=== PATIENT | female | born 2000 | race Caucasian/White ===

== ENCOUNTER 2022-09-13 22:36 | Emergency (ER) | payer OTHER ==
[~2022-09-13] VITALS: Ht 160 cm; Wt 74.4 kg
[2022-09-13 22:46] VITALS: BP_SYST 119; PULSE 102; RESP 18; TEMP 98; O2SAT 98
[2022-09-13] MEDS ORDERED: ceFAZolin SODIUM 2 GM VIAL IM ONE (23:30)
[2022-09-13] MEDS ORDERED: ceFAZolin SODIUM 1 GM VIAL ONE (23:35)
[2022-09-13] MEDS ORDERED: CEPH-548 PO (23:57)
[2022-09-13 23:59] VITALS: BP_SYST 117; PULSE 99; RESP 18; TEMP 98; O2SAT 98
== END 2022-09-13 23:59 | disposition home or self-care (01) ==
LOC: SED 22:36
DX: L03.115 Cellulitis of right lower limb (principal); R22.41 Localized swelling, mass and lump, right lower limb; Z79.899 Other long term (current) drug therapy
CPT/HCPCS: 99283; 96372; J0690

== ENCOUNTER 2022-09-16 14:33 | Emergency (ER) | payer OTHER ==
[~2022-09-16] VITALS: Ht 160 cm; Wt 74.4 kg
[~2022-09-16 14:33] MED LIST: CEPH-548 PO
[2022-09-16 14:52] VITALS: BP_SYST 125; PULSE 91; RESP 18; TEMP 98.3; O2SAT 98
[2022-09-16] MEDS ORDERED: NEOM28.37 TP (15:02)
[2022-09-16] MEDS ORDERED: IBUP-1969 PO (15:02)
[2022-09-16] MEDS ORDERED: TRAM50TA2 PO (15:02)
[2022-09-16 16:01] VITALS: BP_SYST 125; PULSE 91; RESP 18; TEMP 98.3; O2SAT 98
== END 2022-09-16 15:44 | disposition home or self-care (01) ==
LOC: SED 14:33
DX: L55.0 Sunburn of first degree (principal); M25.511 Pain in right shoulder; M25.512 Pain in left shoulder; Z79.899 Other long term (current) drug therapy
CPT/HCPCS: 99283

== ENCOUNTER 2022-10-24 17:41 | Emergency (ER) | payer OTHER ==
[~2022-10-24] VITALS: Ht 165.1 cm; Wt 64.4 kg
[~2022-10-24 17:41] MED LIST changes: +IBUP-1969 PO; +NEOM28.37 TP; +TRAM50TA2 PO
[2022-10-24 18:04] VITALS: BP_SYST 113; PULSE 95; RESP 18; TEMP 98; O2SAT 97
[2022-10-24] MEDS ORDERED: METOCLOPRAMIDE HCL 10 MG/2 ML VIAL IM ONE (18:30)
[2022-10-24 18:49] LABS: BILIRUBIN,URINE NEGATIVE (NEGATIVE); BLOOD, URINE NEGATIVE (NEGATIVE); COLOR,URINE YELLOW (YELLOW); GLUCOSE,URINE NEGATIVE (NEGATIVE); KETONES,URINE NEGATIVE (NEGATIVE); LEUKOCYTE ESTERASE ,URINE TRACE (NEGATIVE); NITRITE, URINE NEGATIVE (NEGATIVE); PH,URINE 6.5 (5.0-8.0); PROTEIN URINE TRACE (NEGATIVE)
[2022-10-24 18:52] LABS: BASOPHILS % (AUTO) 0.5 % (0.0-2.0); EOSINOPHILS # (AUTO) 0.1 K/uL (0.0-0.4); EOSINOPHILS % (AUTO) 1.2 % (0.0-4.0); HEMATOCRIT 38.5 % (36-48); HEMOGLOBIN 13.2 g/dL (12.0-16.0); LYMPHOCYTES # (AUTO) 1.2 K/uL (1.0-5.5); LYMPHOCYTES % (AUTO) 19.5 % (20.5-51.5); MEAN CORPUSCULAR HEMOGLOBIN 30 pg (27-31); MEAN CORPUSCULAR HGB CONC 34 % (32-36); MEAN CORPUSCULAR VOLUME 87 fL (79.0-98.0); MONOCYTES # (AUTO) 0.5 K/uL (0.0-1.0); MONOCYTES % (AUTO) 8.2 % (1.7-9.3); NEUTROPHILS # (AUTO) 4.3 K/uL (1.8-7.7); NEUTROPHILS % (AUTO) 70.6 % (40.0-70.0); PLATELET COUNT (AUTO) 269 K/uL (130-430); RED BLOOD CELL COUNT(AUTO) 4.44 MIL/uL (4.2-6.2); RED CELL DISTRIBUTION WIDTH 12.4 % (9.0-15.0); WHITE BLOOD COUNT (AUTO) 6.1 K/uL (4.5-11.0)
[2022-10-24 18:53] LABS: CLARITY/URINE SLIGHTLY HAZY (CLEAR)
[2022-10-24 19:04] LABS: ACETONE, SERUM NEGATIVE (NEGATIVE)
[2022-10-24 19:05] LABS: ANION GAP 7 (5-15); CALCIUM 8.9 mg/dL (8.4-11.0); CARBON DIOXIDE 28 mmol/L (23-29); CHLORIDE 103 mmol/L (98-107); CREATININE 0.73 mg/dL (0.55-1.30); GFR AFRICAN AMERICAN 132 mL/min (>90); GLUCOSE 113 mg/dL (74-106); POTASSIUM 3.9 mmol/L (3.5-5.1); SERUM HCG (QUALITATIVE) NEGATIVE (NEGATIVE); SODIUM SERUM 138 mmol/L (136-145); UREA NITROGEN, BLOOD 10 mg/dL (8-21)
[2022-10-24 19:06] LABS: GFR NON AFRICAN-AMERICAN 109 mL/min (>90)
[2022-10-24 19:09] LABS: ALANINE AMINOTRANSFERASE 8 U/L (12-78); ALBUMIN 3.8 g/dL (3.4-4.8); ASPARTATE AMINOTRANSFERASE 7 U/L (10-37); LIPASE 32 U/L (73-393); TOTAL BILIRUBIN 1.3 mg/dL (0.0-1.0)
[2022-10-24] MEDS ORDERED: NITROFURANTOIN MONOHYD/M-CRYST 100 MG CAPSULE (MacroBID) PO ONE (19:15)
[2022-10-24 19:27] LABS: BACTERIA,URINE MODERATE /HPF (None Seen); RBC,URINE 0-3 /HPF (0-3)
[2022-10-24 19:28] LABS: MUCUS,URINE 3+ /LPF (None Seen)
[2022-10-24] MEDS ORDERED: NITR-85 PO (19:36)
[2022-10-24] MEDS ORDERED: ONDA-8 TL (19:36)
== END 2022-10-24 19:32 | disposition home or self-care (01) ==
LOC: SED 17:41
DX: N39.0 Urinary tract infection, site not specified (principal); R11.2 Nausea with vomiting, unspecified; E11.9 Type 2 diabetes mellitus without complications; Z79.899 Other long term (current) drug therapy
CPT/HCPCS: 99283; 96374; 80053; 81000; 82009; 84703; 83690; 85025; 87086; 36415; J2765